=== PATIENT | female | born 1995 | race Caucasian/White ===

== ENCOUNTER → 2020-06-14 | Outpatient (CLI) | payer BC ==
--- NOTE | 2020-06-14 08:36 | RAD ---
EXAM: Abdomen sonogram. HISTORY: Pain. TECHNIQUE: Sonographic imaging of the abdomen was performed. COMPARISON: None. FINDINGS: The liver is normal in size. No focal hepatic lesion is seen. The gallbladder is unremarkab le. The common bile duct is normal in caliber. The kidneys are unremarkable. The spleen is mildly enl arged. This may be within normal limits for body habitus. The pancreas, aorta and inferior vena cava are unremarkable. IMPRESSION: 1. Mildly enlarged spleen. This may be within normal limits for patient body habitus. 2. No acute sonographic finding. Electronically signed by: Huyen Ferrer MD (06/14/2020 8:34 AM) [id number]
== END ==
LOC: US 06:40
PROVIDERS: ATTEND Family Medicine
DX: R16.1 Splenomegaly, not elsewhere classified (principal)
CPT/HCPCS: 76700